=== PATIENT | male | born 1995 | race Caucasian/White ===

== ENCOUNTER 2016-06-29 11:36 | Emergency (ER) | payer OTHER ==
[~2016-06-29] VITALS: Ht 167.6 cm; Wt 63.0 kg
[2016-06-29 11:46] VITALS: BP 119/79
--- NOTE | 2016-06-29 11:51 | NUR ---
Patient ambulated to bed 06.
--- NOTE | 2016-06-29 12:09 | NUR ---
PT CAME IN WITH CO N/V AND DIARRHEA.
--- NOTE | 2016-06-29 12:09 | NUR ---
Dr. Tony evaluating patient at bedside.
[2016-06-29] MEDS ORDERED: ONDANSETRON 4 MG ODT PO ONE (12:10)
[2016-06-29 13:00] VITALS: BP 113/62
--- NOTE | 2016-06-29 13:00 | NUR ---
Patient discharged with v/s stable. Written and verbal after care instructions given and explained. Patient alert, oriented and verbalized understanding of instructions. Ambulatory with steady gait. All questions addressed prior to discharge. ID band removed. Patient advised to follow up with PMD. Rx of MOTRIN,ZOFRAN AND IMMODIUM given. Patient educated on indication of medication including possible reaction and side effects. Opportunity to ask questions provided and answered.
== END 2016-06-29 13:00 | disposition home or self-care (01) ==
LOC: MED 11:36
DX: R10.13 Epigastric pain (principal); R11.2 Nausea with vomiting, unspecified; R19.7 Diarrhea, unspecified; F17.200 Nicotine dependence, unspecified, uncomplicated
CPT/HCPCS: 99283; S0119

== ENCOUNTER 2018-04-16 08:51 | Emergency (ER) | payer SELFPAY ==
[~2018-04-16] VITALS: Ht 167.6 cm; Wt 64.4 kg
[2018-04-16 09:27] VITALS: BP 132/80
--- NOTE | 2018-04-16 09:32 | NUR ---
TO LOBBY A/W BED AMB, EVAN STEPHENS NOTED
--- NOTE | 2018-04-16 11:27 | NUR ---
PATIENT AMBULATED TO BED 5.
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
[2018-04-16] MEDS ORDERED: IBUPROFEN 800 MG TAB PO ONE (12:25)
--- NOTE | 2018-04-16 12:33 | NUR ---
PT TO RADIOLOGY VIA
[2018-04-16 13:35] VITALS: BP 132/80
== END 2018-04-16 13:35 | disposition home or self-care (01) ==
LOC: MED 08:51
DX: S13.9XXA Sprain of joints and ligaments of unspecified parts of neck, initial encounter (principal); V49.9XXA Car occupant (driver) (passenger) injured in unspecified traffic accident, initial encounter; Y93.89 Activity, other specified; Y92.89 Other specified places as the place of occurrence of the external cause; Y99.8 Other external cause status
CPT/HCPCS: 72040; 99283

== ENCOUNTER 2020-09-28 17:37 | Emergency (ER) | payer MEDICAID ==
[~2020-09-28] VITALS: Ht 162.6 cm; Wt 70.8 kg
[2020-09-28 17:49] VITALS: BP 145/104
[2020-09-28] MEDS ORDERED: PROCHLORPERAZINE 10 MG/2 ML VIAL IM ONE (18:15)
[2020-09-28] MEDS ORDERED: diphenhydrAMINE 50 MG/ML VIAL IM ONE (18:15)
[2020-09-28] MEDS ORDERED: KETOROLAC 30 MG/ML VIAL IM ONE (18:15)
--- NOTE | 2020-09-28 18:59 | NUR ---
PATIENT TAKEN TO CHAIR
--- NOTE | 2020-09-28 19:00 | NUR ---
see complete assessment for reference.
--- NOTE | 2020-09-28 19:25 | NUR ---
Patient discharged with v/s stable. Written and verbal after care instructions given and explained. Patient verbalized understanding. Ambulatory with steady gait. ID band removed. All questions addressed prior to discharge. Advised to follow up with PMD.
[2020-09-28 19:28] VITALS: BP 127/100
== END 2020-09-28 19:25 | disposition home or self-care (01) ==
LOC: MED 17:37
DX: G43.909 Migraine, unspecified, not intractable, without status migrainosus (principal); R11.10 Vomiting, unspecified; R42 Dizziness and giddiness
CPT/HCPCS: 70450; 96372; 99284; J0780; J1885; J1200

== ENCOUNTER 2020-11-17 18:25 | Emergency (ER) | payer SELFPAY ==
[~2020-11-17] VITALS: Ht 167.6 cm; Wt 71.2 kg
[2020-11-17 19:11] VITALS: BP 127/75
[2020-11-17] MEDS ORDERED: ACYC400T14 PO (21:57)
[2020-11-17 22:24] VITALS: BP 125/72
--- NOTE | 2020-11-17 22:24 | NUR ---
Patient discharged with v/s stable. Written and verbal after care instructions given and explained. Patient alert, oriented and verbalized understanding of instructions. Ambulatory with steady gait. All questions addressed prior to discharge. ID band removed. Patient advised to follow up with PMD. Rx of ZOVIRAX given. Patient educated on indication of medication including possible reaction and side effects. Opportunity to ask questions provided and answered.
== END 2020-11-17 22:24 | disposition home or self-care (01) ==
LOC: MED 18:25
DX: A60.00 Herpesviral infection of urogenital system, unspecified (principal); K62.89 Other specified diseases of anus and rectum; Z79.899 Other long term (current) drug therapy
CPT/HCPCS: 36415; 87491; 99283